=== PATIENT | female | born 1965 | race Caucasian/White ===

== ENCOUNTER → 2016-12-09 | Day surgery (SDC) | payer OTHER ==
--- NOTE | 2016-12-10 13:28 | OP ---
DATE OF OPERATION: 12/09/2016 PREOPERATIVE DIAGNOSIS: Left breast mass, 12 o'clock, subareolar. POSTOPERATIVE DIAGNOSIS: Left breast mass, 12 o'clock, subareolar. PROCEDURE: Left ultrasound-guided cyst aspiration. ANESTHESIA: Local. ATTENDING SURGEON: Eloina Brown MD ESTIMATED BLOOD LOSS: Minimal. COMPLICATIONS: None. PROCEDURE: Patient was made aware of the risks and benefits of the procedure and consented. She was placed in the supine position. Under sterile conditions using 1% lidocaine for local anesthesia, an 18-gauge needle under ultrasound guidance was able to aspirate a small amount of nonbloody fluid which was not submitted for cytology. The cyst was completely decompressed with no residual nodularity. A sterile dressing applied. Patient was reassured. Return to our office in 6 months for repeat exam and ultrasound. ELOINA BROWN M.D. [id number]
== END | disposition home or self-care (01) ==
LOC: FRADUS-SUR 13:37
PROVIDERS: ATTEND Surgery
PROC: BH41ZZZ Ultrasonography of Left Breast (ICD-10-PCS; principal; 2016-12-09)
PROC: 0H9U3ZX Drainage of Left Breast, Percutaneous Approach, Diagnostic (ICD-10-PCS; 2016-12-09)
DX: N60.02 Solitary cyst of left breast (principal)
CPT/HCPCS: 76942-TC